=== PATIENT | female | born 1945 | race Caucasian/White ===

== ENCOUNTER 2018-08-24 07:37 | Inpatient (IN) ==
[2018-08-24] MEDS ORDERED: Sodium Chlor 0.9% Inj 40 ML, Bupivacaine Liposo PF 1.3% Inj 20 ML P-ARTICULR ONE ×2 (08:23)
[2018-08-24] MEDS ORDERED: Sodium Chlor 0.9% Inj 500 ML IV.CONT ONE (08:30)
[2018-08-24] MEDS ORDERED: Chlorhexidine Gluconate 2% 1 Pack (2 Cloths) TOPICAL ONE (08:30)
[2018-08-24] MEDS ORDERED: Chlorhexidine 4% Topical 120 APPLIC/120 ML Bottle TOPICAL SCH (08:30)
[2018-08-24] MEDS ORDERED: Metoprolol Tartrate 25 MG Tablet PO ONE (08:30)
[2018-08-24] MEDS ORDERED: Vancomycin Inj 1,000 MG in Sodium Chlor 0.9% Inj 250 ML IV.SIG SCH (09:00)
[2018-08-24] MEDS ORDERED: SODIUM CHLOR 0.9% IV.SIG SCH (09:00)
[2018-08-24] MEDS ORDERED: TRANEXAMIC ACID IV.SIG SCH (09:00)
[2018-08-24] MEDS ORDERED: Bupivacaine 0.5% Inj 50 ML MDV Vial ONE (10:06)
[2018-08-24] MEDS: ceFAZolin 2 GM Premix Inj 2 GM/50 ML PIGGYBACK IV.SIG SCH ×4 (11:30→23:29)
[2018-08-24] MEDS ORDERED: Bupivacaine PF 0.5% Inj 30 ML Vial ONE (12:15)
[2018-08-24] MEDS ORDERED: Post-op Orders (for Pharmacy) OTHER STA (13:41)
[2018-08-24] MEDS ORDERED: HYDROmorphone PF Inj 1 MG/ML Ampul IV.PUSH PRN (13:52)
[2018-08-24] MEDS ORDERED: Aluminum/Magnesium/Simethacone Susp 30 ML UDC PO PRN (13:52)
[2018-08-24] MEDS ORDERED: Bisacodyl 10 MG Supp RECTAL PRN (13:52)
[2018-08-24] MEDS ORDERED: Temazepam 15 MG Capsule PO PRN (13:52)
[2018-08-24] MEDS ORDERED: Acetaminophen 325 MG Tablet PO PRN (13:52)
[2018-08-24] MEDS ORDERED: oxyCODONE/Acetaminophen 10/325 Tablet PO PRN (13:52)
--- NOTE | 2018-08-24 14:12 | P.OP ---
- Preoperative Diagnosis (1) Unilateral primary osteoarthritis, left knee - Postoperative Diagnosis (1) Unilateral primary osteoarthritis, left knee Date of procedure: 08/24/18 Procedure: Left total knee arthroplasty Implants: [employer] size 5 narrow femoral component size 4 tibial component with 5 mm polyethylene and a 32 mm patella component Anesthesia: regional, spinal Surgeon: Mayank Luo MD Printer Slotter Feeder: Eddie Saravia Estimated blood loss (mL): 150 Tourniquet time (min): 49 Pathology: none sent Operation and Findings: The patient was given a block in the preop holding area. She was brought the operating room and placed under spinal anesthetic. Left lower extremity was prepped and draped in usual sterile fashion. IV antibiotics were given. Timeout was completed. The left lower extremity was exsanguinated. The tourniquet inflated to 300 mmHg. A slightly medial midline incision was made. Hemostasis obtained with use of electrocautery. A medial vastus splitting approach was used. Subperiosteal dissection was performed proximal tibia. The severe arthritis was noted in the lateral compartment. The patella was measured at 23 mm. This was trimmed back to 13-1/2 mm. This was sized and it was between a 35 and a 32 mm patella component. Attention was drawn to the femurs. Retractors were placed. Starting hole made in the distal femur intramedullary guide. 4 degree angle. 9 degree resection. This was sized initially a size 6. This was too thin of a need for size 6. We went down to a size 5 even the size 5 was had an overhang of 1 mm. But this was the most appropriate size anterior to posterior. We made all of our femoral guide cuts. We then subluxed the tibia anteriorly resected the meniscus. Use extra medullary alignment guide. Proceed with resection. We released the lateral capsule off of the tibia which provided good ligamentous balance. Her trial reduction showed excellent range of motion and stability in all planes. Finishing cuts were made on the tibia. Long-acting Marcaine was injected about the knee. We proceeded to place her components on the field we mixed her bone cement and cemented our components into place residual cement was removed the final polyethylene was 5 mm. We had full extension gravity flexion to 135 degrees. We let the tourniquet down at 10 minutes. Hemostasis obtained with use electrocautery. Further long-acting Marcaine injected. Proceeded to close in layers of absorbable sutures. Subcuticular on the skin. Steri-Strips applied. The patient was awoken returned to recovery room in stable condition. The first aid nurse is an advanced registered nurse practitioner. His skill set is medically necessary for the performance of the operation.
--- NOTE | 2018-08-24 15:57 | XR ---
EXAM DATE: 08/24/2018 3:47 PM EST AGE/SEX: 72 years / Female INDICATIONS: Post op total left knee. CLINICAL DATA: This is the patient's initial encounter. Patient reports that signs and symptoms have been present for 1 day and indicates a pain score of 2/10. MEDICAL/SURGICAL HISTORY: None. None. COMPARISON: No prior exams available for comparison. FINDINGS: The patient is status post left total knee arthroplasty with prosthesis in good position. CONCLUSION: Status post left total knee arthroplasty with prosthesis in good position. Electronically signed by: Luis M Ro MD Board Certified Radiologist 08/24/2018 3:55 PM EST
[2018-08-24] MEDS: Hydroxychloroquine 200 MG Tablet PO SCH (20:31)
[2018-08-24] MEDS: Pantoprazole Sodium 20 MG DR Tablet PO SCH (20:31)
[2018-08-24] MEDS: Senna/Docusate Sodium 8.6/50 MG Tablet PO SCH (20:32)
[2018-08-25] MEDS: ceFAZolin 2 GM Premix Inj 2 GM/50 ML PIGGYBACK IV.SIG SCH ×3 (00:04→07:08)
[2018-08-25 08:01] LABS: Hematocrit 33.9 % (35.0-46.0); Hemoglobin 11.1 gm/dL (11.6-15.3)
[2018-08-25] MEDS: Senna/Docusate Sodium 8.6/50 MG Tablet PO SCH (08:34)
[2018-08-25] MEDS: Pantoprazole Sodium 20 MG DR Tablet PO SCH (08:35)
[2018-08-25] MEDS: Hydroxychloroquine 200 MG Tablet PO SCH (08:36)
[2018-08-25] MEDS ORDERED: amLODIPine 10 MG Tablet PO SCH (09:00)
[2018-08-25] MEDS ORDERED: hydroCHLOROthiazide 25 MG Tablet PO SCH (09:00)
[2018-08-25 11:18] VITALS: BP 129/70; PULSE 86; RESP 16; TEMP 97.9; O2SAT 98
--- NOTE | 2018-08-25 13:20 | P.PNOP ---
Subjective Interval history: Patient comfortable Physical Exam Vital signs: Vital Signs 08/24/18 13:41 08/24/18 13:45 08/24/18 14:00 Temperature 97.9 F Pulse Rate 83 76 72 Respiratory Rate 16 16 15 Blood Pressure 101/62 120/56 L 124/63 Pulse Oximetry 96 98 100 08/24/18 14:15 08/24/18 14:30 08/24/18 14:45 Temperature Pulse Rate 83 83 87 Respiratory Rate 22 22 15 Blood Pressure 152/81 H 138/67 162/74 H Pulse Oximetry 100 96 100 08/24/18 15:00 08/24/18 20:00 08/25/18 00:10 Temperature 97.6 F 98.1 F 97.9 F Pulse Rate 87 91 H 78 Respiratory Rate 16 18 18 Blood Pressure 150/66 H 133/60 134/60 Pulse Oximetry 98 94 L 95 08/25/18 04:00 08/25/18 08:40 Temperature 97.2 F L 97.9 F Pulse Rate 78 86 Respiratory Rate 18 16 Blood Pressure 116/59 L 129/70 Pulse Oximetry 94 L 98 Intake & Output 08/24/18 08/25/18 08/25/18 18:59 06:59 18:59 Intake Total 2583.4 / 2583.4 1108 / 1108 280 / 280 Output Total 300 / 300 Balance 2283.4 / 2283.4 1108 / 1108 280 / 280 Weight 76 kg 79 kg Intake: IV 553.4 / 553.4 1108 / 1108 50 / 50 LR 1000 mL Inj 1,000 ML @ 80 42 / 42 958 / 958 mls/hr IV.CONT .[id number] ALEM Rx# :[id number] Cyklokapron Inj 1,140 MG In NS 111.4 / 111.4 Inj 100 ML @ 200 mls/hr IV.SIG ONCE ALEM Rx#:[id number] Vancomycin Inj 1,000 MG In NS 250 / 250 Inj 250 ML @ 250 mls/hr IV.SIG APPRAISER OIL AND WATER ALEM Rx#:[id number] Ancef 2 GM Premix Inj 2 gm In 150 / 150 150 / 150 50 / 50 50 ml @ 100 mls/hr IV.SIG Q6H ALEM Rx#:[id number] Oral 430 / 430 230 / 230 Anesthesia Amount 1600 / 1600 Output: Urine 0 / 0 Estimated Blood Loss 300 / 300 Other: # Voids 1 5 Date of Last Bowel Movement 08/23/18 08/22/18 # Bowel Movements 0 Weight On Admission 76 kg - Constitutional no acute distress Comments: Spouse at bedside Left knee dressing clean dry and intact Negative Christiano Motor sensory neurologic examination intact Tenderness great toe metatarsophalangeal joint without significant swelling or ecchymosis Results - Labs CBC & Chem 7: 08/25/18 07:31 Laboratory Results - last 24 hr 08/25/18 07:31 Hgb 11.1 L Hct 33.9 L - Imaging Impressions Knee X-Ray 08/24/18 00:00 CONCLUSION: Status post left total knee arthroplasty with prosthesis in good position. Assessment and Plan - Ortho Post Op Day # 1 - Problem List (1) Unilateral primary osteoarthritis, left knee Code(s): M17.12 - Unilateral primary osteoarthritis, left knee Status: Acute - Assessment and Plan Postop day #1 Doing well Aspirin 81 mg twice daily for DVT prophylaxis Percocet 5 mg p.o. every 4 hours as needed pain prescription in chart Discharge home today Physical therapy to start next Tuesday at [facility] All of her questions were answered
--- NOTE | 2018-08-28 11:32 | MD ---
cc: Mayank Luo MD DATE OF DISCHARGE: 08/25/2018 ADMITTING DIAGNOSIS: Severe left knee osteoarthritis. NAME OF PROCEDURE: Left total knee arthroplasty. HOSPITAL COURSE: The patient is a 72-year-old female with severe debilitating left knee osteoarthritis. She has failed conservative management and is indicated for a left total knee arthroplasty. She underwent preoperative clearance. Surgical consent was signed. Came in through same-day surgery, underwent surgery without complication. She was maintained on 23 hours IV antibiotics. She was initiated with deep venous thrombosis prophylaxis. Medical consultation was obtained. Physical therapy consultation was obtained. She was transitioned from IV to p.o. pain medication. She did well during the hospitalization, did not have complications. On postoperative day #1, she was discharged. Her vital signs remained stable. She was discharged home with scheduled outpatient physical therapy for continuation of rehabilitation. She was to continue on standard medication as well as prescription for Percocet for pain management and aspirin for DVT prophylaxis. Continue on standard regular diet with followup scheduled in the office in 1 week. Dictated by CLEMENTINA Toscano MD LUIZ Tellez/hugo , 08:13 AM , 08:21 AM
== END 2018-08-25 15:00 | disposition home or self-care (01) | DRG 470 ==
LOC: HSDI 07:37 → N06 15:25
PROVIDERS: ADMIT Orthopaedic Surgery Sports Medicine; ATTEND Orthopaedic Surgery Sports Medicine
DX: M17.12 Unilateral primary osteoarthritis, left knee
CPT/HCPCS: 73560; 85014; 85018; 86850; 86900; 86901; 97163; C1776; C9290; J0690; J1100; J2250; J2405; J3370; J7050; J7120; J8501